=== PATIENT | female | born 1965 | race Two or more races ===

== ENCOUNTER 2022-02-28 23:19 | Emergency (ER) | payer OTHER ==
[~2022-02-28] VITALS: Ht 154.9 cm; Wt 74.8 kg
--- NOTE | 2022-02-28 23:30 | NUR ---
MAEVESKANNAN. SUBSTERNAL CP RADIATING TO BACK X 2 HRS "FEELS LIKE MY CHEST IS BEING RIPPED APART" 11/27. 3RD EPISODE IN THE PAST 2 WEEKS. PT A/OX4. TOLERATING R/A WELL WITH NO RESP DISTRESS. CONNECTED PT TO POX AND MONITOR. SAFETY MEASURES IN PLACE.
[2022-02-28] MEDS ORDERED: MAG HYDROX/AL HYDROX/SIMETH 30 ML UDC ONE (23:46)
[2022-02-28] MEDS ORDERED: LIDOCAINE VISCOUS 2% UD 15 ML UDC ONE (23:46)
--- NOTE | 2022-02-28 23:54 | NUR ---
LAC #18G S/L BLOOD COLLECTED AND SENT TO LAB
[2022-03-01] MEDS ORDERED: MAG HYDROX/AL HYDROX/SIMETH 30 ML UDC PO ONE
[2022-03-01] MEDS ORDERED: LIDOCAINE VISCOUS 2% UD 15 ML UDC MM ONE
--- NOTE | 2022-03-01 | NUR ---
HATCH SUPERVISOR AT PT'S BEDSIDE
[2022-03-01 00:22] LABS: BASOPHILS % (AUTO) 0.8 % (0.0-2.0); EOSINOPHILS % (AUTO) 1.7 % (0.0-6.0); HEMATOCRIT 45 % (33-45); HEMOGLOBIN 14.8 g/dL (11.5-14.8); LYMPHOCYTES # (AUTO) 2.2 K/uL (0.8-4.8); LYMPHOCYTES % (AUTO) 36.8 % (20.0-44.0); MEAN CORPUSCULAR HGB CONC 33 g/dl (31.0-36.0); MEAN CORPUSCULAR VOLUME 90 fL (82-100); MONOCYTES # (AUTO) 0.6 K/uL (0.1-1.30); MONOCYTES % (AUTO) 10.7 % (2.0-12.0); PLATELET COUNT (AUTO) 256 K/uL (150-450); RED BLOOD CELL COUNT(AUTO) 4.93 MIL/uL (4.0-5.2); WHITE BLOOD COUNT (AUTO) 5.9 K/uL (4.3-11.0)
[2022-03-01 00:38] LABS: AMYLASE 65 U/L (25-115); CALCIUM, SERUM 9.5 mg/dL (8.5-10.1); CARBON DIOXIDE 31 mmol/L (21-32); CHLORIDE 104 mmol/L (98-107); CREATININE 0.7 mg/dL (0.6-1.3); GLUCOSE 109 mg/dL (74-106); MAGNESIUM 2.3 mg/dL (1.8-2.4); POTASSIUM 3.9 mmol/L (3.5-5.1); SODIUM SERUM 140 mmol/L (136-145); UREA NITROGEN, BLOOD 18 mg/dL (7-18)
[2022-03-01 00:44] LABS: CHOLESTEROL 222 mg/dL (<200); HDL CHOLESTEROL 48 mg/dL (40-60); LDL 159 mg/dL (0-99); TRIGLYCERIDES 138 mg/dL (30-150)
[2022-03-01 00:58] LABS: BILIRUBIN,URINE NEGATIVE (NEGATIVE); COLOR,URINE OTHER (YELLOW); LEUKOCYTE ESTERASE ,URINE NEGATIVE (NEGATIVE); NITRITE, URINE NEGATIVE (NEGATIVE); PROTEIN,URINE NEGATIVE (NEGATIVE); UGLUCOSE NEGATIVE (NEGATIVE); UROBILINOGEN,URINE 0.2 EU/dL (0.2)
[2022-03-01 01:21] LABS: BACTERIA,URINE Rare /HPF (None Seen); RBC,URINE 0-2 /HPF (0-2); SQUAMOUS EPITHELIAL CELL,UR Few /HPF (None Seen); WBC,URINE 0-2 /HPF (0-3)
--- NOTE | 2022-03-01 02:21 | NUR ---
PT RETURNED TO ER BED [address]
--- NOTE | 2022-03-01 03:40 | NUR ---
OCCASIONAL BABYSITTER AT PT'S BEDSIDE
[2022-03-01] MEDS ORDERED: AZIT250T13 PO (05:22)
[2022-03-01] MEDS ORDERED: PANT40TA2 PO (05:22)
--- NOTE | 2022-03-01 05:42 | NUR ---
Patient discharged to home in stable condition. RX Written and verbal after care instructions given. Patient verbalizes understanding of instruction. IV removed. Catheter intact and site benign. Pressure and 4x4 applied to site. No bleeding noted. PT ambulatory with a steady gait
[2022-03-01 05:43] VITALS: BP 123/69
== END 2022-03-01 05:45 | disposition home or self-care (01) ==
LOC: ER 23:20
DX: J18.9 Pneumonia, unspecified organism (principal); R07.89 Other chest pain; K21.9 Gastro-esophageal reflux disease without esophagitis; Z88.0 Allergy status to penicillin; Z79.899 Other long term (current) drug therapy
CPT/HCPCS: 36415; 71046; 80048-TC; 80061-TC; 81001; 82150-TC; 83735-TC; 84484-TC; 85025-TC; 85378-TC